=== PATIENT | female | born 1990 | race American Indian/Alaskan Native ===

== ENCOUNTER 2018-10-16 12:11 | Outpatient (CLI) | payer MEDICAID ==
--- NOTE | 2018-10-16 16:16 | Ultrasound Report ---
PROCEDURE: US OB BPP WO NON-STRESS TECHNIQUE: Sonographic evaluation for breathing, movement, tone, and amniotic flui d volume was performed. HISTORY: well being COMPARISONS: None . FINDINGS: FETUS there is a single living intrauterine gestation with a heart rate of 147 bpm. Amount of a mniotic fluid subjectively appears normal. Amniotic fluid volume Normal-score 2. At least one vertical pocket >2 cm or more in vertical axis . breathing: Normal-score 2 . movement: Normal-score 2 . tone: Normal-score 2 . Score: 8 of 8 .. Further evaluation was neither requested nor performed. IMPRESSION: Normal biophysical profile . This document is electronically signed by Freddy Huang MD., October 16 2018 04:13:54 PM ET
[2018-10-16 16:18] VITALS: BP 121/80
--- NOTE | 2018-10-16 16:25 | Ultrasound Report ---
PROCEDURE: US OB LIMITED TECHNIQUE: Transabdominal OB ultrasound was performed to evaluate amniotic fluid index positio aurora and heart rate. Detailed examination of the anatomy was not performed as this was not requ ested. HISTORY: well being COMPARISONS: None FINDINGS: Single living intrauterine gestation currently visualized in the vertex presentation with a hea rt rate of 143 bpm. Subjectively the amount of amniotic fluid appears normal. The amniotic fluid inde x is 19.6 cm which is within normal limits. Placenta was not studied in detail. Internal cervical os was not visualized. measurements were not obtained. IMPRESSION: Single living intrauterine gestation visualized currently vertex presentation with heart rate of 143 bpm. Both subjectively and by amniotic fluid index amount of amniotic fluid appears normal. Further evaluation was neither requested nor performed.. This document is electronically signed by Freddy Huang MD., October 16 2018 04:23:14 PM ET
== END 2018-10-16 16:57 | disposition home or self-care (01) ==
LOC: TRG 12:11
PROVIDERS: ATTEND Obstetrics & Gynecology
DX: O47.1 False labor at or after 37 completed weeks of gestation (principal); O99.513 Diseases of the respiratory system complicating pregnancy, third trimester; J45.909 Unspecified asthma, uncomplicated; Z3A.40 40 weeks gestation of pregnancy
CPT/HCPCS: 76815; 76819

== ENCOUNTER 2018-10-18 06:42 | Inpatient (IN) | payer MEDICAID ==
[2018-10-18] MEDS ORDERED: LACTATED RINGERS 2,000 ML ONE (07:01)
[2018-10-18] MEDS ORDERED: AMPICILLIN/NS 2 GM/100 ML 2 GM/100 ML BAG IV ONE ×2 (07:03→08:00)
[2018-10-18] MEDS ORDERED: LACTATED RINGERS 1,000 ML ONE (07:03)
[2018-10-18] MEDS ORDERED: SUBLIMAZE ONE (07:29)
[2018-10-18] MEDS ORDERED: SUBLIMAZE IV ONE (07:39)
[2018-10-18 07:49] LABS: Hematocrit 29.6 % (30.3-42.9); Hemoglobin 9.8 gm/dl (10.1-14.3); Mean Corpuscular HGB Conc 33 % (30-34); Mean Corpuscular Volume 93 fl (79-97); Platelet Count 215 K/mm3 (140-440); Red Blood Count 3.19 M/mm3 (3.65-5.03); Red Cell Distribution Width 38.3 % (13.2-15.2)
[2018-10-18] MEDS ORDERED: fentaNYL-BUPIV 2 MCG/ML-0.125% 200 MCG/100 ML BAG EPIDURAL ONE (07:56)
[2018-10-18] MEDS ORDERED: BRETHINE IVP PRN (08:00)
[2018-10-18] MEDS ORDERED: LACTATED RINGERS 1,000 ML IV SCH (08:00)
[2018-10-18] MEDS ORDERED: XYLOCAINE 2% INFILTRATI NR (08:00)
[2018-10-18] MEDS ORDERED: PITOCin/NS 20 UNIT/1000ML DRIP 20 UNITS/1,000 ML BAG IV SCH (08:00)
[2018-10-18] MEDS ORDERED: BRETHINE SUB-Q PRN (08:00)
--- NOTE | 2018-10-18 08:32 | Anesthesia Consultation ---
Anesthesia Consult and Med Hx Date of service: 10/18/18 - Airway Anesthetic Teeth Evaluation: Good ROM Head & Neck: Adequate Mental/Hyoid Distance: Adequate Mallampati Class: Class II Intubation Access Assessment: Probably Good - Pulmonary Exam CTA: Yes - Cardiac Exam Cardiac Exam: RRR - Pre-Operative Health Status ASA Pre-Surgery Classification: ASA2 Proposed Anesthetic Plan: Epidural - Pulmonary Hx Smoking: No Hx Asthma: No Hx Respiratory Symptoms: No SOB: No COPD: No Home Oxygen Therapy: No Hx Pneumonia: No Hx Sleep Apnea: No - Cardiovascular System Hx Hypertension: No Hx Coronary Artery Disease: No Hx Heart Attack/AMI: No Hx Angina: No Hx Percutaneous Transluminal Coronary Angioplasty (PTCA): No Hx Cardia Arrhythmia: No Hx Pacemaker: No Hx Internal Defibrillator: No Hx Valvular Heart Disease: No Hx Heart Murmur: No Hx Peripheral Vascular Disease: No - Central Nervous System Hx Neuromuscular Disorder: No Hx Seizures: No CVA: No Hx Back Pain: Yes Hx Psychiatric Problems: No - Gastrointestinal Hx Ulcer: No Hx Gastroesophageal Reflux Disease: No - Endocrine Hx Renal Disease: No Hx End Stage Renal Disease: No Hx Cirrhosis: No Hx Liver Disease: No Hx Insulin Dependent Diabetes: No Hx Non-Insulin Dependent Diabetes: No Hx Thyroid Disease: No Hx Hypothyroidism: No Hx Hyperthyroidism: No - Hematic Hx Anemia: No Hx Sickle Cell Disease: No - Other Systems Hx Alcohol Use: No Hx Substance Use: No Hx Cancer: No Hx Obesity: No
[2018-10-18] MEDS ORDERED: fentaNYL-BUPIV 2 MCG/ML-0.125% 200 MCG/100 ML BAG EPIDURAL SCH (09:00)
[2018-10-18] MEDS ORDERED: PITOCin/NS 30 UNIT/500ML 30,000 MILLIUNITS/500 ML BAG IV ONE (10:47)
[2018-10-18] MEDS ORDERED: PITOCin/NS 30 UNIT/500ML 30 UNITS/500 ML BAG IV SCH (11:00)
[2018-10-18] MEDS ORDERED: NARCAN 2 MG/2 ML IV PRN (11:30)
[2018-10-18] MEDS ORDERED: AMPICILLIN/NS 1 GM/50 ML 1 GM/50 ML BAG IV SCH (11:30)
[2018-10-18] MEDS ORDERED: LANSINOH TP PRN (12:33)
[2018-10-18] MEDS ORDERED: PHENERGAN PR PRN (12:33)
[2018-10-18] MEDS ORDERED: ZOFRAN IV PRN (12:33)
[2018-10-18] MEDS ORDERED: TUCKS PAD TP PRN (12:33)
[2018-10-18] MEDS ORDERED: MILK OF MAGNESIA PO PRN (12:33)
[2018-10-18] MEDS ORDERED: PHENERGAN PO PRN (12:33)
[2018-10-18] MEDS ORDERED: DULCOLAX PR PRN (12:33)
[2018-10-18] MEDS ORDERED: TYLENOL PO PRN (12:33)
[2018-10-18] MEDS ORDERED: BENADRYL PO PRN (12:33)
--- NOTE | 2018-10-18 12:44 | History and Physical Report ---
History of Present Illness Date of examination: 10/18/18 Date of admission: 10/18/18 06:53 Chief complaint: Intense labor pains History of present illness: 28 yo AA Fe , ROLANDO 10/13/2018 (LMP) presents to L&D in active labor. Pt initiated late care at 36+ weeks with [facility] [employer]. Co-managed with [facility] (Late care; suspected cardiac Atrial Septal Aneurysm; Referred to [facility] for cardiac Echo. Pt never went). 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 PAP HSIL: planning Colpo PP. 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 denies: chlamydia, fibroids, gonorrhea, hepatitis B, hepatitis C, HIV, syphilis Family/Genetic History: hypertension - Obstetrical History Expected Date of Delivery: 10/13/18 Actual Gestation: 40 Week(s) 5 Day(s) : 2 Para: 1 Hx # Term Pregnancies: 0 Number of Pregnancies: 0 Spontaneous Abortions: 0 Induced : 0 Number of Living Children: 1 Medications and Allergies Allergies Allergy/AdvReac Type Severity Reaction Status Date / Time No Known Allergies Allergy Verified 10/09/18 13:41 Home Medications Medication Instructions Recorded Confirmed Last Taken Type Pnv,Calcium 72/Iron/Folic Acid 1 each PO QDAY 10/18/18 10/18/18 Unknown History [Pnv Plus Multivit Tab] Active Meds: Active Medications Ephedrine Sulfate (Ephedrine Sulfate) 10 mg IV Q2M PRN PRN Reason: Hypotension Oxytocin/Sodium Chloride (Pitocin/Ns 20 Unit/1000ml Drip) 20 units in 1,000 mls @ 125 mls/hr IV DIRECT MERLIN Lactated Ringer's (Lactated Ringers) 1,000 mls @ 125 mls/hr IV DIRECT MERLIN Last Admin: 10/18/18 07:36 Dose: 125 mls/hr Documented by: Ampicillin Sodium (Ampicillin/Ns 1 Gm/50 Ml) 1 gm in 50 mls @ 100 mls/hr IV Q4H MERLIN; Protocol Fentanyl/Bupivacaine/Sodium Chlor (Fentanyl-Bupiv 2 Mcg/Ml-0.125%) 200 mcg in 100 mls @ 12 mls/hr EPIDURAL TITR MERLIN; Protocol Oxytocin/Sodium Chloride (Pitocin/Ns 30 Unit/500ml) 30 units in 500 mls @ 4 mls/hr IV TITR MERLIN; Protocol Lidocaine (Xylocaine 2%) 20 ml INFILTRATI ONCE NR Stop: 10/19/18 07:59 Mineral Oil (Mineral Oil) 30 ml PO QHS PRN PRN Reason: Constipation Naloxone HCl (Narcan 2 Mg/2 Ml) 0.2 mg IV Q5M PRN PRN Reason: Respiratory sedation Terbutaline Sulfate (Brethine) 0.25 mg SUB-Q ONCE PRN PRN Reason: Hyperstimulation/Hypertonicity Terbutaline Sulfate (Brethine) 0.25 mg IVP ONCE PRN PRN Reason: Hyperstimulation/Hypertonicity Review of Systems Eyes: normal appearance Cardiovascular: no chest pain Respiratory: no shortness of breath Breasts: normal Gastrointestinal: no nausea, no vomiting, no diarrhea, no constipation Genitourinary: normal appearance, contractions, no leakage of fluid, no genital sores Integumentary: no rash, no sores, no lesions Psychiatric: other - Vital Signs Vital signs: Vital Signs Pulse BP 93 H 112/75 10/18/18 06:56 10/18/18 06:56 Temp Pulse Resp BP Pulse Ox 97.7 F 100 H 14 117/70 100 10/18/18 07:42 10/18/18 12:27 10/18/18 08:44 10/18/18 12:27 10/18/18 12:11 - Physical Exam Breasts: Positive: normal Cardiovascular: Regular rate, Normal S1, Normal S2, No murmurs Lungs: Positive: Clear to auscultation, Normal air movement Abdomen: Positive: normal appearance, soft, normal bowel sounds. Negative: distention Genitourinary (Female): Positive: normal external genitalia, normal perenium Vulva: both: normal Uterus: Positive: enlarged (Gravid) Anus/Rectum: Positive: normal perianal skin - Obstetrical FHR: auscultation normal, category 1 Uterine Contraction Monitor Mode: External Cervical Dilatation: 7 (Per RN on arrival; Complete upon my exam) Cervical Effacement Percentage: 80 station: 0 Uterine Contraction Frequency (min): 3 Uterine Contraction Pattern: Regular Uterine Tone Measurement Phase: Resting Uterine Contraction Intensity: Strong/Firm Results Result Diagrams: 10/18/18 07:05 Abnormal lab results 10/18/18 Range/Units 07:05 RBC 3.19 L (3.65-5.03) M/mm3 Hgb 9.8 L (10.1-14.3) gm/dl Hct 29.6 L (30.3-42.9) % RDW 38.3 H (13.2-15.2) % All other labs normal. Assessment and Plan A: Term IUP at 40w5d Late care Co-managed with [facility] (suspected Atrial Septal Aneurysm; Referral to [facility] but didn't go) Category 1 Active labor HSV2; Valtrex supression GBS Negative P: Admit to L&D; routine orders IV pain med/epidural PRN Anticiapte Notify NICU of suspected cardiac anomaly
[2018-10-18] MEDS ORDERED: SODIUM CHLORIDE FLUSH SYRINGE 10 ML IV NR (13:00)
--- NOTE | 2018-10-18 13:09 | Procedure Note ---
OB Delivery Note - Delivery Date of Delivery: 10/18/18 (12:11) Surgeon: ZAK MARTINEZ (SCOTT) Estimated blood loss: 200cc - Vaginal Delivery presentation: vertex Delivery position: OA Intrapartum events: none, mult.variable deceleratio Delivery induction: none Route of delivery: (12:11) Delivery placenta: spontaneous (12:20) Delivery cord: 3 umbilical vessels Delivery laceration: none Anesthesia: epidural Delivery comments: viable male over intact perineum at 12:11. Vigorous placed [id number] on mothers abdomen. Delayed cord clamping and then cut by Grandmother. Cord blood collected per protocol. Spontaneous umair delivery of intact placenta at 12:20. No tears or lacerations. FF@U-2, small lochia. No clots. EBL 200ml. and mother left in stable condition in L&D. - Infant A at 1 minute: 8 at 5 minutes: 9 Infant Gender: Male (3884 grams, 8lbs 9oz, 19.5")
[2018-10-18] MEDS: IBUPROFEN PO SCH ×3 (17:38→23:03)
[2018-10-18] MEDS ORDERED: MINERAL OIL PO PRN (22:00)
[2018-10-19 00:50] LABS: Hematocrit 25.2 % (30.3-42.9); Hemoglobin 8.5 gm/dl (10.1-14.3)
[2018-10-19] MEDS: IBUPROFEN PO SCH ×4 (01:00→11:33)
[2018-10-19 08:48] VITALS: BP 96/65
--- NOTE | 2018-10-19 10:18 | Progress Note ---
Assessment and Plan - Patient Problems (1) (normal spontaneous vaginal delivery) Current Visit: Yes Status: Acute Plan to address problem: Continue routine PP orders Anticipate d/c home tomorrow (2) Anemia Current Visit: Yes Status: Acute Qualifiers: Anemia type: iron deficiency Iron deficiency anemia type: unspecified iron deficiency Qualified Code(s): D50.9 - Iron deficiency anemia, unspecified Plan to address problem: Continue po iron supplementation Subjective - Subjective Date of service: 10/19/18 Principal diagnosis: ; Anemia Interval history: See admission H & P, OB delivery summary and PP progress notes Patient reports: appetite normal, voiding normally, pain well controlled, flatus, bowel movement, ambulating normally Ellis: doing well Objective - Vital Signs Latest vital signs: Vital Signs Temp Pulse Resp BP BP Pulse Ox 10/19/18 07:31 98.5 F 84 20 96/65 98 10/19/18 05:12 18 10/19/18 01:37 98.1 F 82 18 124/67 98 10/18/18 21:43 98.7 F 80 18 128/71 100 10/18/18 15:58 98 F 82 18 124/76 10/18/18 13:12 83 127/72 10/18/18 12:57 92 H 134/74 10/18/18 12:42 90 137/70 10/18/18 12:27 100 H 117/70 10/18/18 12:11 92 H 100 10/18/18 12:07 61 84 10/18/18 12:06 95 H 98 10/18/18 12:01 123 H 100 10/18/18 11:56 89 82 L 10/18/18 11:53 121 H 90 10/18/18 11:51 109 H 100 10/18/18 11:46 104 H 100 10/18/18 11:41 99 H 97 10/18/18 11:40 101 H 92 10/18/18 11:37 97 H 146/72 10/18/18 11:36 107 H 100 10/18/18 11:34 98 H 91 10/18/18 11:31 102 H 100 10/18/18 11:26 96 H 100 10/18/18 11:21 98 H 100 10/18/18 11:16 89 100 10/18/18 11:11 92 H 100 10/18/18 11:06 88 100 10/18/18 11:01 91 H 10/18/18 10:58 90 76 L 10/18/18 10:56 91 H 100 10/18/18 10:51 90 100 10/18/18 10:46 91 H 100 10/18/18 10:41 88 100 10/18/18 10:36 82 108/67 100 10/18/18 10:31 87 100 10/18/18 10:26 78 100 10/18/18 10:21 92 H 10/18/18 10:16 86 100 Intake and Output 10/18/18 10/19/18 10/19/18 23:59 07:59 15:59 Intake Total 720 Output Total 550 600 Balance -550 120 Intake: Intake, Free Water 720 Output: Urine 550 600 Void 550 600 Other: Total, Output Amount 550 250 # Voids Void 1 1 - Exam Breasts: Present: deferred Cardiovascular: Present: Regular rate Lungs: Present: Normal air movement Abdomen: Present: soft, normal bowel sounds Uterus: Present: firm, fundal height below umbilicus (U-2) Extremities: Present: normal Deep Tendon Reflex Grade: Normal +2 - Labs Labs: Abnormal lab results 10/19/18 Range/Units 00:08 Hgb 8.5 L (10.1-14.3) gm/dl Hct 25.2 L (30.3-42.9) %
--- NOTE | 2018-10-19 10:22 | Discharge Summary ---
Providers - Providers Date of Admission: 10/18/18 06:53 Date of discharge: 10/20/18 (1200) Attending physician: JYOTI GUNTER MD Primary care physician: JYOTI GUNTER MD Hospitalization Reason for admission: active labor Delivery: Episiotomy: none Laceration: none Other procedures: none complications: none Discharge diagnosis: IUP at term delivered baby: male Hospital course: See admission H & P, OB delivery summary and PP progress notes Condition at discharge: Stable Disposition: DC-01 TO HOME OR SELFCARE - Discharge Diagnoses (1) (normal spontaneous vaginal delivery) Status: Acute (2) Anemia Status: Acute Qualifiers: Anemia type: iron deficiency Iron deficiency anemia type: unspecified iron deficiency Qualified Code(s): D50.9 - Iron deficiency anemia, unspecified Plan - Discharge Medications Prescriptions: Ferrous Sulfate [Feosol 325 MG tab] 325 mg PO BID 30 Days #60 tablet - Provider Discharge Summary Activity: routine, no sex for 6 weeks, no heavy lifting 4 weeks, no strenuous exercise Diet: routine Instructions: routine Additional instructions: [] Smoking cessation referral if applicable(refer to patient education folder for contact #) [] Refer to [facility] Center Booklet Call your doctor immediately for: * Fever > 100.5 * Heavy vaginal bleeding ( >1 pad per hour) * Severe persistent headache * Shortness of breath * Reddened, hot, painful area to leg or breast * Drainage or odor from incision. - Follow up plan Follow up: JOYTI GUNTER MD [Primary Care Provider] - 6 Weeks
[2018-10-19] MEDS ORDERED: FEOSOL PO SCH (11:00)
== END 2018-10-19 16:20 | disposition home or self-care (01) | DRG 774 ==
LOC: TRG 06:42 → LD 06:53 → OB 14:09
PROVIDERS: ADMIT Obstetrics & Gynecology; ATTEND Obstetrics & Gynecology
PROC: 10E0XZZ Delivery of Products of Conception, External Approach (ICD-10-PCS; principal; 2018-10-18)
PROC: 3E0R3BZ Introduction of Anesthetic Agent into Spinal Canal, Percutaneous Approach (ICD-10-PCS; 2018-10-18)
PROC: 00HU33Z Insertion of Infusion Device into Spinal Canal, Percutaneous Approach (ICD-10-PCS; 2018-10-18)
DX: O98.32 Other infections with a predominantly sexual mode of transmission complicating childbirth (principal); A60.00 Herpesviral infection of urogenital system, unspecified; O76 Abnormality in fetal heart rate and rhythm complicating labor and delivery; O99.02 Anemia complicating childbirth; D50.9 Iron deficiency anemia, unspecified; Z3A.40 40 weeks gestation of pregnancy; Z37.0 Single live birth
CPT/HCPCS: 36415; 76815; 76819; 85014; 85018; 85027; 86592; 86850; 86900; 86901; G0378; J0290; J2590; J3010; J7120

== ENCOUNTER 2022-01-14 14:30 | Inpatient (IN) | payer MEDICAID ==
[2022-01-14] MEDS ORDERED: BUTORPHANOL 2 MG/1 ML INJ IV PRN ×2 (18:33)
[2022-01-14] MEDS ORDERED: MINERAL OIL 30 ML ORAL LIQD PO PRN (18:33)
[2022-01-14] MEDS ORDERED: LOPERAMIDE 2 MG CAP PO PRN (18:33)
[2022-01-14] MEDS ORDERED: OXYTOCIN 10 UNIT/1 ML INJ IM PRN (18:33)
[2022-01-14] MEDS ORDERED: ePHEDrine SULFATE 50 MG/1 ML INJ IV PRN ×2 (18:33→19:48)
[2022-01-14] MEDS ORDERED: ACETAMINOPHEN 325 MG TAB PO PRN ×2 (18:33→23:05)
[2022-01-14] MEDS ORDERED: TERBUTALINE 1 MG/1 ML INJ SUB-Q PRN (18:33)
[2022-01-14] MEDS ORDERED: CARBOPROST TROMETHAMINE 250 MCG/1 ML INJ IM PRN (18:33)
[2022-01-14] MEDS ORDERED: miSOPROStol 200 MCG TAB PR PRN (18:33)
[2022-01-14] MEDS ORDERED: METHYLERGONOVINE MALEATE 0.2 MG/ML VIAL IM PRN (18:33)
[2022-01-14] MEDS ORDERED: LACTATED RINGERS 1,000 ML IV SCH (18:45)
--- NOTE | 2022-01-14 18:53 | History and Physical Report ---
History of Present Illness Date of examination: 01/14/22 Date of admission: 01/14/22 18:33 Chief complaint: Began having contractions that were painful about 4 hours ago. History of present illness: 31 y/o presents to labor and delivery with Gross rupture of membranes. She states her ROLANDO is 02/05/22 and was given that ROLANDO when she had an ultrasound in a hospital. She is an established [facility] Patient but has had no care with this . Past History Past Medical History: no pertinent history Past Surgical History: no surgical history DEVOPS ARCHITECT History: abnormal PAP smear (HGSIL in 2019), herpes - Obstetrical History Expected Date of Delivery: 02/05/22 Actual Gestation: 36 Week(s) 6 Day(s) : 3 Para: 1 Number of Living Children: 1 Medications and Allergies Allergies Allergy/AdvReac Type Severity Reaction Status Date / Time No Known Allergies Allergy Verified 10/09/18 13:41 Home Medications Medication Instructions Recorded Confirmed Last Taken Type Pnv,Calcium 72/Iron/Folic Acid 1 each PO QDAY 10/18/18 10/18/18 Unknown History [Pnv Plus Multivit Tab] Ferrous Sulfate [Feosol 325 MG tab] 325 mg PO BID 30 Days #60 tablet 10/19/18 Unknown Rx Active Meds: Active Medications Acetaminophen (Acetaminophen 325 Mg Tab) 650 mg PO Q4H PRN PRN Reason: Pain, Mild (1-3) Butorphanol Tartrate (Butorphanol 2 Mg/1 Ml Inj) 1 mg IV Q2H PRN PRN Reason: Pain, Moderate(4-6) LABOR PAIN Butorphanol Tartrate (Butorphanol 2 Mg/1 Ml Inj) 2 mg IV Q2H PRN PRN Reason: Pain , Severe (7-10) Carboprost Tromethamine (Carboprost Tromethamine 250 Mcg/1 Ml Inj) 250 mcg IM ONCE PRN PRN Reason: Uterine Bleeding Ephedrine Sulfate (Ephedrine Sulfate 50 Mg/1 Ml Inj) 10 mg IV Q2M PRN PRN Reason: Hypotension Oxytocin/Sodium Chloride (Pitocin/Ns 30 Unit/500ml) 30 units in 500 mls @ 2 mls/hr IV TITR MERLIN; Protocol Lactated Ringer's (Lactated Ringers) 1,000 mls @ 125 mls/hr IV DIRECT MERLIN Oxytocin/Sodium Chloride (Pitocin/Ns 30 Unit/500ml) 30 units in 500 mls @ 40 mls/hr IV TITR MERLIN; Protocol Ampicillin Sodium (Ampicillin/Ns 1 Gm/50 Ml) 1 gm in 50 mls @ 100 mls/hr IV Q4H MERLIN; Protocol Ampicillin Sodium (Ampicillin/Ns 2 Gm/100 Ml) 2 gm in 100 mls @ 100 mls/hr IV ONCE ONE; Protocol Stop: 01/14/22 19:59 Lidocaine (Lidocaine (2%) 20 Mg/1 Ml Vial 20 Ml Mdv) 20 ml INFILTRATI ONCE ONE Stop: 01/14/22 18:34 Loperamide HCl (Loperamide 2 Mg Cap) 2 mg PO ONCE PRN PRN Reason: give with Hemabate Methylergonovine Maleate (Methylergonovine Maleate 0.2 Mg/Ml Vial) 0.2 mg IM ONCE PRN PRN Reason: Uterine Bleeding Mineral Oil (Mineral Oil 30 Ml Oral Liqd) 30 ml PO QHS PRN PRN Reason: Constipation Misoprostol (Misoprostol 200 Mcg Tab) 800 mcg DC ONCE PRN PRN Reason: Uterine Bleeding Oxytocin (Oxytocin 10 Unit/1 Ml Inj) 10 unit IM ONCE PRN PRN Reason: Uterine Bleeding Terbutaline Sulfate (Terbutaline 1 Mg/1 Ml Inj) 0.25 mg SUB-Q ONCE PRN PRN Reason: Hyperstimulation/Hypertonicity Review of Systems All systems: negative - Vital Signs Vital signs: Vital Signs Pulse Resp BP Pulse Ox 95 H 20 129/80 100 01/14/22 14:51 01/14/22 14:51 01/14/22 14:51 01/14/22 14:51 Temp Pulse Resp BP Pulse Ox 90 20 129/80 99 01/14/22 18:41 01/14/22 14:51 01/14/22 14:51 01/14/22 18:41 Results Abnormal lab results 01/14/22 Range/Units Unknown Membranes Rupture Positive A (Negative) All other labs normal. Assessment and Plan A: Active labor and SROM @ 36.6 weeks P: Expect
[2022-01-14] MEDS ORDERED: LIDOCAINE (2%) 20 MG/1 ML VIAL 20 ML MDV INFILTRATI ONE (19:00)
[2022-01-14] MEDS ORDERED: AMPICILLIN/NS 2 GM/100 ML 2 GM/100 ML BAG IV ONE (19:00)
[2022-01-14] MEDS ORDERED: OXYTOCIN DRIP 30 UNITS/500 ML BAG IV SCH ×2 (19:00)
[2022-01-14 19:04] LABS: Hematocrit 32.9 % (30.3-42.9); Hemoglobin 10.9 gm/dl (10.1-14.3); Mean Corpuscular HGB Conc 33 % (30-34); Mean Corpuscular Volume 90 fl (79-97); Platelet Count 192 K/mm3 (140-440); Red Blood Count 3.66 M/mm3 (3.65-5.03); Red Cell Distribution Width 13.3 % (13.2-15.2)
[2022-01-14] MEDS ORDERED: NALOXONE 0.4 MG/1 ML INJ IV PRN (19:48)
[2022-01-14 19:59] LABS: Hepatitis C Virus Antibody Non-Reactive (NonReactive)
[2022-01-14] MEDS ORDERED: fentaNYL-BUPIV 2 MCG/ML-0.125% 200 MCG/100 ML BAG EPIDURAL SCH (20:00)
--- NOTE | 2022-01-14 20:07 | Anesthesia Consultation ---
Anesthesia Consult and Med Hx Date of service: 01/14/22 - Airway Anesthetic Teeth Evaluation: Poor ROM Head & Neck: Adequate Mental/Hyoid Distance: Adequate Mallampati Class: Class II Intubation Access Assessment: Probably Good - Pulmonary Exam CTA: Yes - Cardiac Exam Cardiac Exam: RRR - Pre-Operative Health Status ASA Pre-Surgery Classification: ASA2 Proposed Anesthetic Plan: Epidural - Pulmonary Hx Smoking: No Hx Asthma: No Hx Respiratory Symptoms: No SOB: No COPD: No Hx Pneumonia: No Hx Sleep Apnea: No - Cardiovascular System Hx Hypertension: No Hx Coronary Artery Disease: No Hx Heart Attack/AMI: No Hx Angina: No Hx Percutaneous Transluminal Coronary Angioplasty (PTCA): No Hx Cardia Arrhythmia: No Hx Pacemaker: No Hx Internal Defibrillator: No Hx Valvular Heart Disease: No Hx Heart Murmur: No Hx Peripheral Vascular Disease: No - Central Nervous System Hx Neuromuscular Disorder: No Hx Seizures: No CVA: No Hx Back Pain: Yes Hx Psychiatric Problems: No - Gastrointestinal Hx Ulcer: No Hx Gastroesophageal Reflux Disease: No - Endocrine Hx Renal Disease: No Hx End Stage Renal Disease: No Hx Cirrhosis: No Hx Liver Disease: No Hx Insulin Dependent Diabetes: No Hx Non-Insulin Dependent Diabetes: No Hx Thyroid Disease: No Hx Hypothyroidism: No Hx Hyperthyroidism: No - Hematic Hx Anemia: No Hx Sickle Cell Disease: No - Other Systems Hx Alcohol Use: No Hx Substance Use: No Hx Cancer: No Hx Obesity: No
--- NOTE | 2022-01-14 20:36 | Progress Note ---
Labor Epidural - Labor Epidural Start Time: 20:00 Stop Time: 20:19 Performed by:: PIERCE MARTINEZ Procedure: Patient is requesting a laboring epidural for laboring pain. Patient IDed, H&P reviewed, all questions and concerns were answered, and consent was signed. Timeout was performed at bedside. Patient in sitting position. Sterile prep and drape was performed. [3] ml of 1% lidocaine skin wheal at L[3]- L [4]. 17- gauge Tuohy epidural needle was advanced to loss of resistance with saline technique 7cm. Single dural perforation via 25 gauge spinal needle placed through the shaft of Epidural needle. Positive CSF via spinal needle. Negative CSF negative blood via Epidural needle. Epidural catheter advanced to [11] centimeters. [NEGATIVE] Aspiration [NEGATIVE] test dose. Negative Paresthesia. Sterile dressing applied. Patient tolerated procedure.
[2022-01-14] MEDS ORDERED: fentaNYL 100 MCG/2 ML INJ ONE (22:50)
[2022-01-14] MEDS ORDERED: AMPICILLIN/NS 1 GM/50 ML 1 GM/50 ML BAG IV SCH (23:00)
--- NOTE | 2022-01-14 23:03 | Procedure Note ---
OB Delivery Note - Delivery Date of Delivery: 01/14/22 Surgeon: YARED WEBBER (Erin VICKERS) Estimated blood loss: 300cc - Vaginal Delivery presentation: vertex Delivery position: OA Intrapartum events: none Delivery induction: none Delivery monitor: external FHT, external uterine Route of delivery: Delivery placenta: spontaneous Delivery cord: 3 umbilical vessels Episiotomy: none Delivery laceration: none Anesthesia: epidural Delivery comments: of a viable male 5#15oz @ 2228 on 01/14/2022 over intact perineum. Placenta delivered 3VCI. 01/14. QBL 300cc. - Infant A at 1 minute: 9 at 5 minutes: 9 Gender: Male (5#15oz)
[2022-01-14] MEDS ORDERED: oxyCODONE /ACETAMINOPHEN 5-325MG TAB PO PRN (23:05)
[2022-01-14] MEDS ORDERED: MAGNESIUM HYDROXIDE (MOM) ORAL LIQD UDC PO PRN (23:05)
[2022-01-14] MEDS ORDERED: LANOLIN/ZINC/DIMETHICONE (LANSINOH) 7 GM TP PRN (23:05)
[2022-01-14] MEDS ORDERED: WITCH HAZEL/ GLYCERIN PAD TP PRN (23:05)
[2022-01-14] MEDS ORDERED: diphenhydrAMINE 25 MG CAP PO PRN (23:05)
[2022-01-15] MEDS: IBUPROFEN 800 MG TAB PO SCH ×3 (00:06→17:16)
[2022-01-15 02:08] LABS: Amphetamine Screen,Urine PRESUMPTIVE NEGATIVE; Benzodiazepines Screen,Urine PRESUMPTIVE NEGATIVE; Cannabinoid Screen,Urine PRESUMPTIVE POSITIVE; Cocaine Screen,Urine PRESUMPTIVE POSITIVE; Methadone Screen,Urine PRESUMPTIVE POSITIVE; Opiate Screen,Urine PRESUMPTIVE NEGATIVE
--- NOTE | 2022-01-15 11:37 | Progress Note ---
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 Discharge instructions given Subjective - Subjective Date of service: 01/15/22 Principal diagnosis: - PPD # 1 Interval history: Positive drug screen for cocaine, marijuana, and Methadone. Pt states that she goes to a Methadone clinic and had here last dose on . Release of records sent to her clinic to get confirmation of dose. Her psychologist clinical called and states she came to clinic and got her dose this morning and she also gave her her dose for tomorrow. Patient reports: appetite normal : doing well Objective - Vital Signs Latest vital signs: Vital Signs Temp Pulse Resp BP BP Pulse Ox Pulse Ox 01/15/22 08:54 16 01/15/22 02:00 98.4 F 82 18 121/81 99 01/14/22 23:43 70 118/68 01/14/22 23:28 67 124/79 01/14/22 23:13 82 133/85 01/14/22 23:03 76 99 01/14/22 22:58 78 128/78 100 01/14/22 22:53 79 100 01/14/22 22:48 78 99 01/14/22 22:46 71 128/76 01/14/22 22:43 75 100 01/14/22 22:38 79 100 01/14/22 22:33 83 99 01/14/22 22:28 77 97 01/14/22 22:23 87 97 01/14/22 22:18 107 H 100 01/14/22 22:16 87 89 01/14/22 22:12 105 H 98 01/14/22 22:10 68 L 01/14/22 22:07 86 99 01/14/22 22:02 79 98 01/14/22 21:58 78 110/65 93 01/14/22 21:57 72 94 01/14/22 21:52 88 100 01/14/22 21:49 93 H 76 L 01/14/22 21:47 90 99 01/14/22 21:43 85 121/71 01/14/22 21:42 83 99 01/14/22 21:37 102 H 100 01/14/22 21:32 80 100 01/14/22 21:28 75 123/74 01/14/22 21:27 82 100 01/14/22 21:22 76 100 01/14/22 21:19 89 92 01/14/22 21:17 89 100 01/14/22 21:14 70 129/71 01/14/22 21:12 71 100 01/14/22 21:07 82 100 01/14/22 21:02 89 99 01/14/22 20:58 73 128/78 01/14/22 20:57 71 100 01/14/22 20:52 75 100 01/14/22 20:47 81 100 01/14/22 20:43 71 124/80 01/14/22 20:42 71 100 01/14/22 20:40 75 119/75 01/14/22 20:37 79 118/73 100 01/14/22 20:34 83 127/76 01/14/22 20:32 88 100 01/14/22 20:31 87 119/76 01/14/22 20:28 77 128/74 01/14/22 20:27 83 100 01/14/22 20:25 82 120/65 01/14/22 20:23 87 115/75 01/14/22 20:22 87 123/82 99 01/14/22 20:19 95 H 138/89 01/14/22 20:17 78 100 01/14/22 20:16 90 142/89 01/14/22 20:15 75 59 L 01/14/22 20:13 89 141/79 01/14/22 20:12 76 137/84 100 01/14/22 20:10 91 H 94 01/14/22 20:07 92 H 129/87 100 01/14/22 20:05 84 89 01/14/22 20:02 79 100 01/14/22 19:57 76 99 01/14/22 19:52 86 100 01/14/22 19:47 84 98 01/14/22 19:42 78 100 01/14/22 19:37 85 100 01/14/22 19:32 85 100 01/14/22 19:27 71 99 01/14/22 19:22 78 100 01/14/22 19:17 79 99 01/14/22 19:12 99 H 98 01/14/22 19:07 101 H 99 01/14/22 18:56 91 H 18 100 01/14/22 18:51 94 H 99 01/14/22 18:46 86 99 01/14/22 18:41 90 99 01/14/22 18:36 86 99 01/14/22 18:31 87 99 01/14/22 18:26 87 99 01/14/22 18:21 83 99 01/14/22 18:16 81 99 01/14/22 18:11 87 99 01/14/22 18:06 92 H 99 01/14/22 18:01 89 100 01/14/22 17:56 83 100 01/14/22 17:51 98 H 96 01/14/22 17:39 88 99 01/14/22 17:34 81 98 01/14/22 17:29 86 99 01/14/22 17:24 78 99 01/14/22 17:19 94 H 99 01/14/22 17:14 75 99 01/14/22 17:09 80 100 01/14/22 17:04 79 100 01/14/22 16:59 80 99 01/14/22 16:54 82 99 01/14/22 16:49 84 99 01/14/22 16:44 84 99 01/14/22 16:39 82 99 01/14/22 16:34 82 98 01/14/22 16:29 89 99 01/14/22 16:24 84 99 01/14/22 14:51 95 H 20 129/80 129/80 100 Intake and Output 01/14/22 01/15/22 01/15/22 22:59 06:59 14:59 Output Total 700 Balance -700 Output: Urine 700 Indwelling Catheter 700 Other: Total, Output Amount 700 Weight 150 lb Estimated Blood Loss 300 - Exam Breasts: Present: deferred Cardiovascular: Present: Regular rate Lungs: Present: Clear to auscultation Abdomen: Present: soft Uterus: Present: fundal height below umbilicus Deep Tendon Reflex Grade: Normal +2 - Labs Labs: Abnormal lab results 01/14/22 Range/Units Unknown Membranes Rupture Positive A (Negative)
--- NOTE | 2022-01-15 11:42 | Discharge Summary ---
Providers - Providers Date of Admission: 01/14/22 18:33 Date of discharge: 01/15/22 Attending physician: CHANO HUANG MD 01/15/22 09:47 Consult to Case Management [CONS] Routine Services Needed at Discharge: Other Notified:: Linda Phone number called:: [phone] Additional Physician Instructions: Mom and Baby positive for THC, Cocaine, and Methadone Primary care physician: CHANO HUANG MD Hospitalization Reason for admission: active labor Delivery: Episiotomy: none Laceration: none Other procedures: none complications: none Discharge diagnosis: IUP at term delivered baby: male Condition at discharge: Good Disposition: 01 HOME / SELF CARE / HOMELESS Plan - Provider Discharge Summary Activity: routine, no sex for 6 weeks, no strenuous exercise Diet: routine Instructions: routine Additional instructions: [] Smoking cessation referral if applicable(refer to patient education folder for contact #) [] Refer to [facility]'s [facility] Booklet Call your doctor immediately for: * Fever > 100.5 * Heavy vaginal bleeding ( >1 pad per hour) * Severe persistent headache * Shortness of breath * Reddened, hot, painful area to leg or breast * Drainage or odor from incision. * Keep incision clean and dry at all times and follow doctor's instructions regarding bathing/showering - Follow up plan Follow up: CHANO HUANG MD [Primary Care Provider] - 6 Weeks
--- NOTE | 2022-01-15 12:35 | Post Anesthesia Evaluation ---
- Post Anesthesia Evaluation Patient Participated: Yes Airway Patent: Yes Stable Respiratory Function: Yes Nausea/Vomiting: No Temp > 96.8F: Yes Pain Manageable: Yes Adequeate Hydration: Yes Anesthesia Complications: No Block Receding Appropriately: Yes Patient on Ventilator: No
[2022-01-15 15:29] LABS: Hematocrit 29.6 % (30.3-42.9); Hemoglobin 9.3 gm/dl (10.1-14.3)
[2022-01-16] MEDS: IBUPROFEN 800 MG TAB PO SCH ×3 (00:37→12:11)
[2022-01-16 09:11] VITALS: BP 119/87
== END 2022-01-16 14:25 | disposition home or self-care (01) | DRG 774 ==
LOC: TRG 14:30 → APU 14:31 → TRG 18:41 → LD 19:50 → OB 01-15 02:38
PROVIDERS: ADMIT Obstetrics & Gynecology Gynecology; ATTEND Obstetrics & Gynecology Gynecology
PROC: 10E0XZZ Delivery of Products of Conception, External Approach (ICD-10-PCS; principal; 2022-01-14)
PROC: 3E0R3BZ Introduction of Anesthetic Agent into Spinal Canal, Percutaneous Approach (ICD-10-PCS; 2022-01-14)
PROC: 00HU33Z Insertion of Infusion Device into Spinal Canal, Percutaneous Approach (ICD-10-PCS; 2022-01-14)
DX: O98.32 Other infections with a predominantly sexual mode of transmission complicating childbirth (principal); Z37.0 Single live birth; Z3A.36 36 weeks gestation of pregnancy; A60.00 Herpesviral infection of urogenital system, unspecified; Z20.822 Contact with and (suspected) exposure to COVID-19
CPT/HCPCS: 36415; 80307; 84112; 85014; 85018; 85027; 86592; 86706; 86762; 86803; 86850; 86900; 86901; 87086; 87806; G0378; J0595; J2590; J3010; J7120; U0003